=== PATIENT | male | born 1995 | race Caucasian/White ===

== ENCOUNTER 2018-07-24 14:06 | Emergency (ER) | payer OTHER ==
[2018-07-24 14:41] VITALS: BP 134/74
--- NOTE | 2018-07-24 15:08 | EDPHY ---
H & P Time Seen by Provider: 07/24/18 14:51 HPI/ROS: CHIEF COMPLAINT: Left clavicle pain HISTORY OF PRESENT ILLNESS: 23-year-old male was skiing yesterday, fell onto his left shoulder complaining of pain. He brought a sling at a pharmacy. No head injury. No back pain or injury. No scapula pain. No paresthesia. No chest pain. No dyspnea. PHYSICAL EXAM (Prior to examination, patient consented to physical exam, hands were washed and my usual and customary physical exam procedures followed) 1) GENERAL: Well-developed, well-nourished, alert and oriented. Appears to be in no acute distress. 2) HEAD: Normocephalic 3) HEENT: sclera anicteric 4) LUNGS: Breathing comfortably. 5) SKIN: Intact skin no tenting. 6) MUSCULOSKELETAL: Tender to palpation mid clavicle. Scapula nontender. Humerus elbow forearm nontender. Brisk pulses distally. Soft compartments 7) NEUROLOGIC:No axillary nerve dysfunction Smoking Status: Never smoked Constitutional: Initial Vital Signs Temperature (C) 37 C 07/24/18 14:39 Heart Rate 76 07/24/18 14:39 Respiratory Rate 16 07/24/18 14:39 Blood Pressure 134/74 H 07/24/18 14:39 O2 Sat (%) 95 07/24/18 14:39 O2 Delivery Mode Room Air Allergies/Adverse Reactions: No Known Allergies Allergy (Unverified 07/24/18 14:41) Home Medications: Medication Instructions Recorded oxyCODONE/APAP 5/325 [Percocet 1 tab PO Q6 #10 tab 07/24/18 5/325] MDM/Departure - [facility] Imaging Results: Imaging Impressions Clavicle X-Ray 07/24/18 14:50 Impression: Acute displaced left midclavicular fracture. Images myself Procedures: Procedure: Splint Patient has a pre-hospital sling which has been adjusted by ER data entry technician . After adjustment application of the sling I returned and re-examined the patient. The splint was adequately immobilizing the joint and distal to the splint the patient's circulation and sensation were intact. Patient shows no signs of compartment syndrome. Was given orthopedic precautions. - Depart Disposition: Home, Routine, Self-Care Clinical Impression: Closed left clavicular fracture Qualifiers: Encounter type: initial encounter Clavicle location: shaft Fracture alignment: displaced Qualified Code(s): S42.022A - Displaced fracture of shaft of left clavicle, initial encounter for closed fracture Condition: Good Instructions: Clavicle Fracture (ED) Additional Instructions: Return to the ER immediately if you experience discoloration, have worsening pain, numbness, tingling, or any other symptoms that concern you. If you received x-rays in the emergency department today, be advised, that ligamentous , tendon, muscular, and other non-bony injury cannot be fully ruled out. Try to keep your affected extremity elevated above the level of your chest, and keep cold packs on the affected area, for the next 48 hours. Prescriptions: oxyCODONE/APAP /325 [Percocet 5/325] 1 tab PO Q6 #10 tab Referrals: Rajat Arteaga MD [Medical Doctor] - 2-3 days, call for appt.
--- NOTE | 2018-07-24 16:28 | ASMTCAGE ---
CAGE Additional Comments Attempted to see pt for CAGE screening secondary to postivie SBIRT. Pt discharged prior to seeing CM. Per Altaf, brittarging RN, pt was not intoxicated at time of visit and there were no ETOH/drug use concerns. Date Signed: 07/24/2018 04:28 PM Electronically Signed By:Becky Rizo RN
== END 2018-07-24 15:21 | disposition home or self-care (01) ==
DX: S42.022A Displaced fracture of shaft of left clavicle, initial encounter for closed fracture (principal); V00.321A Fall from snow-skis, initial encounter; Y93.23 Activity, snow (alpine) (downhill) skiing, snowboarding, sledding, tobogganing and snow tubing; Y92.838 Other recreation area as the place of occurrence of the external cause

== ENCOUNTER 2018-08-15 13:39 | Emergency (ER) | payer OTHER ==
--- NOTE | 2018-08-15 15:03 | EDPHY ---
H & P Stated Complaint: lac to r thumb post fall chasing his dog Time Seen by Provider: 08/15/18 15:02 HPI/ROS: HPI: This is a 23-year-old male who presents with Chief Complaint: lac to r thumb post fall chasing his dog Location: Right thumb Quality: Laceration Duration: Prior to arrival Signs and Symptoms: + bleeding, no radiation, no numbness, no weakness, no tingling, no incontinence, no decreased range of motion, no swelling, no pain, no fever Timing: Acute Severity: Mild Context: Patient is right-hand dominant, presents with accidentally getting caught up between 2 dogs that are both up-to-date on their immunizations including rabies, and hitting his hand either on their nail or on the ground causing a laceration to the base of his right thumb. Patient does not believe that he was actually bit by any of the dogs. Denies LOC/head injury/neck pain/ dizziness/nausea/vomiting/amnesia. He noted bleeding immediately and applied direct pressure. He denies decreased range of motion, paresthesias, tingling, numbness. He already contacted animal control. Reports tetanus is current. His dog is a pit bull. The other dog final canoe inspector is in the waiting room. Modifying Factors: Direct pressure Comment: ROS: A comprehensive 10 system review of systems is otherwise negative aside from elements mentioned in the history of present illness. MEDICAL/SURGICAL/SOCIAL HISTORY: Medical history: Generally healthy. Does not take any regular medications. Surgical history: Denies Social history: Never smoked. CONSTITUTIONAL: Well-developed, well-nourished, young adult white male, awake and alert, no obvious distress HEENT: Atraumatic and normocephalic. 3 superficial abrasions noted over bridge of nose. No septal hematoma and no epistaxis. NECK: supple, no midline tenderness, flexion 45 degrees, extension 45 degrees, right and left lateral flexion 45 degrees. No meningismus. Cardiovascular: Normal S1/S2, regular rate, regular rhythm, without murmur rub or gallop. PULMONARY/CHEST: Symmetrical and nontender. no crepitus. Clear to auscultation bilaterally. Good air movement. No accessory muscle usage. ABDOMEN: Soft, nondistended, nontender, no ecchymosis. EXTREMITIES: 2/2 pulses, strength 5/5, right WRIST: Extension to 70, flexion to 80, radial deviation to 20 degree, ulnar deviation to 30, no scaphoid tenderness, no tenderness over ulnar styloid, no tenderness over radial styloid. At the base of the right thumb shows 4 cm linear, superficial laceration with no active bleeding; DIP/PIP/MCP flexion/extension intact with good light touch sensation. no deformities, no clubbing, no cyanosis or edema. NEUROLOGICAL: no focal neuro deficits. GCS 15. Light touch sensation intact. SKIN: Warm and dry, no erythema. no rash. Good capillary refill. Source: Patient Exam Limitations: No limitations - Personal History Current Tetanus Diphtheria and Acellular Pertussis (TDAP): Yes - Medical/Surgical History Hx Asthma: No Hx Chronic Respiratory Disease: No Hx Diabetes: No Hx Cardiac Disease: No Hx Renal Disease: No Hx Cirrhosis: No Hx Alcoholism: No Hx HIV/AIDS: No Hx Splenectomy or Spleen Trauma: No Other PMH: none - Social History Smoking Status: Never smoked Constitutional: Initial Vital Signs Temperature (C) 37.3 C 08/15/18 13:56 Heart Rate 88 08/15/18 13:56 Respiratory Rate 18 08/15/18 13:56 Blood Pressure 143/92 H 08/15/18 13:56 O2 Sat (%) 97 08/15/18 13:56 O2 Delivery Mode Room Air Allergies/Adverse Reactions: No Known Allergies Allergy (Verified 08/15/18 13:56) Home Medications: Medication Instructions Recorded Amoxicillin/Clavulanate Pot 875 mg PO BID #14 tab 08/15/18 [Augmentin 875 MG TAB (*)] Medical Decision Making Procedures: Procedure: Laceration repair. Verbal consent was obtained from the patient. The 4 cm, simple, linear laceration on the base of the right thumb was anesthetized in the usual fashion using 4 mL of 1% lidocaine without epinephrine. The wound was irrigated, draped and explored to its base with a gloved finger. There were no deep structures involved. No tendon injury was identified. The wound was repaired with #5, 0 Prolene in simple interrupted pattern. Hemostasis was achieved and patient tolerated procedure well. Xeroform and clean sterile dressing applied. The procedure was performed by myself. ED Course/Re-evaluation: Vital signs reviewed and stable upon arrival. Patient has already contacted [facility]. Tetanus is up-to-date Local anesthesia provided; right thumb laceration repaired with 5 nonabsorbable sutures No indication for rabies prophylaxis Xeroform and clean sterile dressing applied No signs of neurovascular compromise/tenting of skin/compartment syndrome/ extremities and joints examined above and below area of concern and are neurovascularly intact. Superficial facial abrasions cleaned with soap and water and bacitracin applied. This patient was seen under the supervision of my secondary supervising physician. I evaluated care for this patient independently. Differential Diagnosis: Differential diagnosis includes but is not limited to dog bite, laceration, nerve injury, tendon injury, fracture. Departure - Departure Disposition: Home, Routine, Self-Care Clinical Impression: Abrasion of face without infection Laceration of right thumb without complication Qualifiers: Encounter type: initial encounter Qualified Code(s): S61.011A - Laceration without foreign body of right thumb without damage to nail, initial encounter Condition: Good Instructions: Laceration (ED), Care For Your Stitches (ED) Additional Instructions: Keep the dressing dry and in place for 48 hours. After 48 hours, you may remove the dressing; wash the site daily with mild soap and water; then pat dry. Clean abrasions daily with soap and water and pat dry then apply topical antibiotic ointment daily until fully healed. Take Tylenol 650 mg every 4 hours and/or Ibuprofen 600 mg every 8 hours with food as needed for pain. Take antibiotic as directed. Do not skip a dose. Return to the ER immediately if you experience new or worsening pain, discoloration, numbness, tingling, or any other symptoms that concern you. Referrals: [facility],. [Clinic] - As per Instructions Glenn Malin MD [Medical Doctor] - As per Instructions Prescriptions: Amoxicillin/Clavulanate Pot [Augmentin 875 MG TAB (*)] 875 mg PO BID #14 tab
[2018-08-15 15:52] VITALS: BP 132/86
== END 2018-08-15 15:50 | disposition home or self-care (01) ==
PROC: 0HQFXZZ Repair Right Hand Skin, External Approach (ICD-10-PCS; principal; 2018-08-15)
DX: S61.011A Laceration without foreign body of right thumb without damage to nail, initial encounter (principal); S00.31XA Abrasion of nose, initial encounter; W22.8XXA Striking against or struck by other objects, initial encounter; Y92.9 Unspecified place or not applicable; Y93.K9 Activity, other involving animal care; Y99.9 Unspecified external cause status